=== PATIENT | female | born 1970 | race Hispanic/Latino ===

== ENCOUNTER 2016-07-02 07:50 | Outpatient (CLI) | payer MEDICARE ==
[2016-07-02 08:12] LABS: Hemoglobin A1c 7.7 % (4.0-6.0)
[2016-07-02 08:57] LABS: ALT (SGPT) 28 U/L (0-55); AST (SGOT) 23 U/L (5-34); Alkaline Phosphatase 78 U/L (40-150); Anion Gap 14 mmol/L (10-20); BUN (Urea Nitrogen) 5 mg/dL (7.0-18.7); Bilirubin, Total 0.5 mg/dL (0.2-1.2); Calc. Creatinine Clearance 0 mL/min (70-130); Calcium 9.2 mg/dL (7.8-10.44); Carbon Dioxide 25 mmol/L (22-29); Cardiac Risk 5.3 (Less than 4.5); Chloride 103 mmol/L (98-107); Cholesterol 176 mg/dL (< 200 Desired); Estimated GFR-MDRD 90; Globulin 3.5 g/dL (2.4-3.5); Glucose 151 mg/dL (70-105); HDL Cholesterol 33 mg/dL (>60 Neg Risk); LDL Cholesterol, Calculated 124 mg/dL; Potassium 3.7 mmol/L (3.5-5.1); Protein, Total 7.5 g/dL (6.0-8.3); Sodium 138 mmol/L (136-145); Triglycerides 97 mg/dL (Less than 150)
== END 2016-07-02 07:51 ==
LOC: NAV LAB 07:50
PROVIDERS: ATTEND Family Medicine
DX: E11.9 Type 2 diabetes mellitus without complications (principal)
CPT/HCPCS: 80053; 80061; 83036

== ENCOUNTER 2016-09-30 08:21 | Outpatient (CLI) | payer MEDICARE, OTHER ==
[2016-09-30 09:01] LABS: Hemoglobin A1c 6.4 % (4.0-6.0)
[2016-09-30 09:11] LABS: ALT (SGPT) 15 U/L (8-55); AST (SGOT) 13 U/L (5-34); Albumin 3.8 g/dL (3.5-5.0); Alkaline Phosphatase 84 U/L (40-150); Anion Gap 12 mmol/L (10-20); BUN (Urea Nitrogen) 9 mg/dL (7.0-18.7); Bilirubin, Total 0.2 mg/dL (0.2-1.2); Calc. Creatinine Clearance 0 mL/min (70-130); Carbon Dioxide 26 mmol/L (22-29); Cardiac Risk 5.4 (Less than 4.5); Chloride 106 mmol/L (98-107); Cholesterol 162 mg/dl (< 200 Desired); Estimated GFR-MDRD Greater than 90; Globulin 2.9 g/dL (2.4-3.5); Glucose 149 mg/dL (70-105); HDL Cholesterol 30 mg/dL (>60 Neg Risk); LDL Cholesterol, Calculated 110 mg/dL; Potassium 4.1 mmol/L (3.5-5.1); Protein, Total 6.7 g/dL (6.0-8.3); Sodium 140 mmol/L (136-145); Triglycerides 111 mg/dL (Less than 150)
== END 2016-09-30 08:22 | disposition home or self-care (01) ==
LOC: NAV LAB 08:21
PROVIDERS: ATTEND Family Medicine
DX: E11.9 Type 2 diabetes mellitus without complications (principal)
CPT/HCPCS: 80053; 80061; 83036

== ENCOUNTER 2017-01-22 03:56 | Emergency (ER) | payer MEDICARE, MEDICAID ==
[2017-01-22] MEDS ORDERED: Ibuprofen 800 MG TAB ONE (04:18)
== END 2017-01-22 04:20 | disposition home or self-care (01) ==
LOC: NAV ERS 03:56
DX: J02.9 Acute pharyngitis, unspecified (principal); E11.9 Type 2 diabetes mellitus without complications; E78.5 Hyperlipidemia, unspecified
CPT/HCPCS: 87081; 87430; 99282

== ENCOUNTER 2018-12-19 09:48 | Outpatient (CLI) | payer MEDICARE, MEDICAID ==
--- NOTE | 2018-12-19 13:10 | CT ---
Lumbar spine CT: 12/19/2018 COMPARISON: None HISTORY: Back pain TECHNIQUE: Axial CT imaging at 2.5 mm intervals through the lumbar spine with coronal and sagittal re formatted imaging FINDINGS: Evaluation for central canal and/or neural foraminal stenosis is limited on routine CT exam ination. There is no anterolisthesis or retrolisthesis noted within the lumbar spine. T12-L1: There is no osseous cause of significant central canal or neural foraminal stenosis L1-2: No osseous cause of significant central canal or neural foraminal stenosis L2-3: No osseous cause of significant central canal or neural foraminal stenosis L3-4: No osseous cause of significant central canal or neural foraminal stenosis L4-5: Prominent bilateral facet hypertrophy. Degenerative gas noted within bilateral facet joints. Pr obable mild left neural foraminal stenosis. No osseous cause of significant central canal or right neural foraminal stenosis. L5-S1: Bilateral facet hypertrophy is noted, left greater than right. There is moderate left neural f oraminal stenosis secondary to osteophyte encroachment. There is mild disc bulge. No osseous cause of significant central canal or right neural foraminal stenosis. Significant degenerative changes noted within bilateral sacroiliac joints. No acute fracture or dislocation. No discrete lytic or blastic bone lesion. Punctate nonobstructing stone noted in the midpole of the right kidney measuring 5 mm. There is a que stionable incompletely imaged low-density lesion within the right ovary. Follow-up pelvic ultrasound suggested. IMPRESSION: No acute osseous abnormality. Degenerative change within the lumbar spine as detailed abo ve. Questionable low-density lesion within the right ovary for which follow-up pelvic ultrasound is advis ed.
== END 2018-12-19 09:49 | disposition home or self-care (01) ==
LOC: NAV CT 09:48
PROVIDERS: ATTEND Neurological Surgery
DX: M54.5 Low back pain (principal); M47.816 Spondylosis without myelopathy or radiculopathy, lumbar region; M47.817 Spondylosis without myelopathy or radiculopathy, lumbosacral region
CPT/HCPCS: 72131

== ENCOUNTER 2020-05-04 20:45 | Emergency (ER) | payer MEDICARE, MEDICAID ==
[2020-05-04] MEDS ORDERED: Sodium Chloride 0.9% 1,000 ML ONE (21:38)
[2020-05-04] MEDS ORDERED: Ibuprofen 200 MG TAB ONE (21:38)
[2020-05-04 21:42] LABS: Bilirubin Negative (Negative); Blood, Urine Trace (Negative); Clarity Clear (Clear); Glucose, Urine (Dipstick) >=1000 mg/dL (Negative); Ketone, Urine Negative (Negative); Leukocyte Negative (Negative); Nitrite Negative (Negative); Protein, Urine (Dipstick) Negative (Neg-Trace); Specific Gravity, Urine 1.015 (1.005-1.030); Urobilinogen 0.2 mg/dL (Less than 2); pH, Urine 6.5 (5.0-9.0)
[2020-05-04 21:46] LABS: #Basophils 0.1 thou/uL (0.0-0.2); #Eosinphils 0.1 thou/uL (0.0-0.7); #Lymphocytes 1.1 thou/uL (1.20-3.40); #Monocytes 0.7 thou/uL (0.11-0.59); #Neutrophils 7.4 thou/uL (1.40-6.50); %Basophils 0.7 % (0.0-1.0); %Eosinophils 0.7 % (0.0-10.0); %Lymphocytes 11.7 % (21.0-51.0); %Monocytes 7.5 % (0.0-10.0); %Neutrophils 79.3 % (42.0-75.0); Mean Corpuscular HGB CONC 33.1 g/dL (32.0-36.0); Mean Corpuscular Hemoglobin 28.8 pg (27.0-31.0); Mean Corpuscular Volume 86.9 fL (78.0-98.0); Mean Platelet Volume 8.1 fL (7.4-10.4); Platelet Count 269 thou/uL (130-400); RBC Distribution Width 11.9 % (11.5-14.5); White Blood Cell (WBC) Count 9.4 thou/uL (4.8-10.8)
[2020-05-04 21:46] LABS: Bacteria/HPF Rare-Few HPF (None Seen); RBC/HPF 0-3 HPF (0-3); Squamous Epithelial 0-3 HPF (0-3); WBC/HPF 0-3 HPF (0-3)
[2020-05-04 21:47] LABS: Yeast-Budding Rare HPF (None Seen); Yeast-Hyphae Rare HPF (None Seen)
[2020-05-04 21:59] LABS: ALT (SGPT) 47 U/L (8-55); AST (SGOT) 26 U/L (5-34); Alkaline Phosphatase 111 U/L (40-110); Anion Gap 17 mmol/L (10-20); BUN (Urea Nitrogen) 9 mg/dL (7.0-18.7); Bilirubin, Total 0.7 mg/dL (0.2-1.2); Calc. Creatinine Clearance 0 mL/min (70-130); Calcium 9.2 mg/dL (7.8-10.44); Carbon Dioxide 21 mmol/L (22-29); Chloride 102 mmol/L (98-107); Globulin 3.7 g/dL (2.4-3.5); Glucose 186 mg/dL (70-105); Potassium 3.5 mmol/L (3.5-5.1); Protein, Total 7.7 g/dL (6.0-8.3); Sodium 136 mmol/L (136-145)
--- NOTE | 2020-05-04 22:31 | RAD ---
RADIOGRAPH CHEST 1 VIEW: DATE: 05/04/2020 HISTORY: 49-year-old female with fever FINDINGS: There are no airspace densities, pulmonary edema, pneumothorax, or cardiomegaly. The lateral costophr enic angles are sharp. IMPRESSION: No acute cardiopulmonary findings.
== END 2020-05-04 23:10 | disposition home or self-care (01) ==
LOC: NAV ERS 20:45
DX: B34.9 Viral infection, unspecified (principal); R00.0 Tachycardia, unspecified; E11.9 Type 2 diabetes mellitus without complications; Z79.899 Other long term (current) drug therapy; Z79.82 Long term (current) use of aspirin; Z86.69 Personal history of other diseases of the nervous system and sense organs
CPT/HCPCS: 71045; 80053; 81003; 81015; 83605; 85025; 87040; 87086; 93005; 94760; J7050